=== PATIENT | male | born 1995 | race Two or more races ===

== ENCOUNTER 2024-09-07 10:16 | Emergency (ER) | payer SELFPAY ==
[~2024-09-07] VITALS: Ht 180.3 cm; Wt 106.8 kg
[2024-09-07 10:16] VITALS: TEMP 98.2
[2024-09-07] MEDS: HYDROcodone-ACET 5/325MG TAB PO ONE (10:45)
[2024-09-07 10:50] VITALS: BP 142/72; PULSE 88; RESP 20; O2SAT 98
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
--- NOTE | 2024-09-07 11:40 | DVH ---
XY R FOREARM XRAY, INDICATION: injury TECHNICAL DATA: Frontal and lateral views were obtained of the right forearm. COMPARISON: None FINDINGS: Nondisplaced radial head and distal radius fracture. Soft tissues are normal. IMPRESSION: Nondisplaced radial head and distal radius fracture.
--- NOTE | 2024-09-07 11:41 | DVH ---
XY R ELBOW 3 VIEW XRAY, INDICATION: injury TECHNICAL DATA: Frontal, oblique and lateral views were obtained of the right elbow. COMPARISON: None FINDINGS: Nondisplaced radial head fracture. Joint spaces are maintained. Alignment at the joint is anatomic. S oft tissues are within normal limits. Small joint effusion. IMPRESSION: Nondisplaced radial head fracture.
--- NOTE | 2024-09-07 11:45 | DVH ---
CLINICAL INDICATION: injury TECHNIQUE: 3 views of the right wrist XY R WRIST 3+ VIEW XRAY Comparison: None FINDINGS/IMPRESSION: Minimally displaced radial styloid fracture with intra-articular extension. Minimally displaced fracture of the ulnar styloid process. Soft tissue swelling about the wrist. No radiopaque bodies.
[2024-09-07] MEDS ORDERED: IBU600T PO (12:09)
== END 2024-09-07 12:18 | disposition home or self-care (01) ==
LOC: ER 10:16
DX: S52.614A Nondisplaced fracture of right ulna styloid process, initial encounter for closed fracture (principal); S52.124A Nondisplaced fracture of head of right radius, initial encounter for closed fracture; S52.571A Other intraarticular fracture of lower end of right radius, initial encounter for closed fracture; V89.2XXA Person injured in unspecified motor-vehicle accident, traffic, initial encounter; Y93.89 Activity, other specified; Y92.89 Other specified places as the place of occurrence of the external cause; Y99.8 Other external cause status
CPT/HCPCS: 29105; 73080; 73090; 73110